=== PATIENT | male | born 1970 | race Hispanic/Latino ===

== ENCOUNTER 2018-05-31 06:58 | Emergency (ER) | payer MEDICARE ==
--- NOTE | 2018-05-31 12:56 | Emergency Department Report ---
ED CPR HPI - General Chief Complaint: Cardiac Arrest/CPR Stated Complaint: CARDIAC ARREST Source: EMS Mode of arrival: Stretcher Limitations: Other - History of Present Illness Initial Comments: This is a status post cardiac arrest patient that presents to this facility in asystole. He has metastatic cancer to his brain. His hospice nurse was present when he had a witnessed cardiac arrest. Paramedics state that the family and hospice nurse did not have a fully executed DO NOT RESUSCITATE. Therefore he was transferred to this facility for further care CPR in progress. There was no response to CPR for more than 20 minutes prior to arrival. MD Complaint: stopped breathing -: minute(s) Place: home Bystander CPR Performed: No Initial Findings in the Field: lethargic ROSC in the Field: No Associated Injuries: No Treatments Prior to Arrival: BMV - Related Data Home Medications Medication Instructions Recorded Confirmed Last Taken ALPRAZolam [Xanax TAB] 2 mg PO TID PRN 09/23/14 02/28/18 Unknown Aspirin [Aspirin BABY CHEW TAB] 81 mg PO QDAY 09/23/14 02/28/18 Unknown Carvedilol [Coreg] 25 mg PO BID 09/23/14 02/28/18 Unknown Clopidogrel [Plavix] 75 mg PO QDAY 09/23/14 02/28/18 Unknown Furosemide [Lasix] 40 mg PO BID 09/23/14 02/28/18 Unknown Hydralazine HCl [Apresoline TAB] 50 mg PO TID 09/23/14 02/28/18 Unknown Isosorbide Mononitrate [Isosorbide 60 mg PO QDAY 09/23/14 02/28/18 Unknown Mononitrate ER (IMDUR)] Lisinopril [Zestril TAB] 40 mg PO QDAY 09/23/14 02/28/18 Unknown Morphine [Morphine TAB] 15 mg PO BID PRN 09/23/14 02/28/18 Unknown NIFEdipine [NIFEdipine ER] 60 mg PO DAILY 09/23/14 02/28/18 Unknown Quetiapine Fumarate [SEROquel XR] 400 mg PO QHS 09/23/14 02/28/18 Unknown cloNIDine-TTS PATCH [Catapres-Tts 1 patch TD 1XW 09/23/14 02/28/18 Unknown Patch] lamoTRIgine [LaMICtal] 200 mg PO QDAY 09/23/14 02/28/18 Unknown metFORMIN [Glucophage] 500 mg PO BID 09/23/14 02/28/18 Unknown oxyCODONE [Roxicodone TAB] 15 mg PO QID PRN 09/23/14 02/28/18 Unknown ALBUTEROL Inhaler [Proair] 2 puff IH QID PRN 02/28/18 02/28/18 Unknown Budesonide [Pulmicort] 0.25 mg IH Q12HR 02/28/18 02/28/18 Unknown Docusate Sodium [Colace] 100 mg PO BID PRN 02/28/18 02/28/18 Unknown Duloxetine HCl [Cymbalta] 2 tab PO DAILY 02/28/18 02/28/18 Unknown Fluticasone/Salmeterol [Advair 1 each IH BID 02/28/18 02/28/18 Unknown 250-50 Diskus] Fluticasone/Vilanterol [Breo 1 each IH DAILY 02/28/18 02/28/18 Unknown Ellipta 100-25 Mcg INH] Levothyroxine [Synthroid] 50 mcg PO QAM 02/28/18 02/28/18 Unknown Ranitidine HCl [Zantac 150 MG TAB] 150 mg PO BID 02/28/18 02/28/18 Unknown cycloSPORINE [Restasis 0.05%] 1 drop OP BID 02/28/18 02/28/18 Unknown predniSONE [Deltasone] 10 mg PO QDAY 02/28/18 02/28/18 Unknown Allergies Allergy/AdvReac Type Severity Reaction Status Date / Time Penicillins Allergy Hives Verified 09/23/14 18:49 sulfamethoxazole Allergy Hives Verified 09/23/14 18:49 [From Bactrim] trimethoprim [From Bactrim] Allergy Hives Verified 09/23/14 18:49 ED Review of Systems ROS: Stated complaint: CARDIAC ARREST Other details as noted in HPI Comment: Unobtainable due to pts medical conditions ED Past Medical Hx - Past Medical History Hx Hypertension: Yes Hx Congestive Heart Failure: Yes Hx Diabetes: Yes Hx COPD: Yes Additional medical history: Metastatic carcinoma to brain - Surgical History Hx Coronary Stent: Yes Additional Surgical History: stents x 2009 - Social History Smoking Status: Current Every Day Smoker Other Social History: Home hospice patient - Medications Home Medications: Home Medications Medication Instructions Recorded Confirmed Last Taken Type ALPRAZolam [Xanax TAB] 2 mg PO TID PRN 09/23/14 02/28/18 Unknown History Aspirin [Aspirin BABY CHEW TAB] 81 mg PO QDAY 09/23/14 02/28/18 Unknown History Carvedilol [Coreg] 25 mg PO BID 09/23/14 02/28/18 Unknown History Clopidogrel [Plavix] 75 mg PO QDAY 09/23/14 02/28/18 Unknown History Furosemide [Lasix] 40 mg PO BID 09/23/14 02/28/18 Unknown History Hydralazine HCl [Apresoline TAB] 50 mg PO TID 09/23/14 02/28/18 Unknown History Isosorbide Mononitrate [Isosorbide 60 mg PO QDAY 09/23/14 02/28/18 Unknown History Mononitrate ER (IMDUR)] Lisinopril [Zestril TAB] 40 mg PO QDAY 09/23/14 02/28/18 Unknown History Morphine [Morphine TAB] 15 mg PO BID PRN 09/23/14 02/28/18 Unknown History NIFEdipine [NIFEdipine ER] 60 mg PO DAILY 09/23/14 02/28/18 Unknown History Quetiapine Fumarate [SEROquel XR] 400 mg PO QHS 09/23/14 02/28/18 Unknown History cloNIDine-TTS PATCH [Catapres-Tts 1 patch TD 1XW 09/23/14 02/28/18 Unknown History Patch] lamoTRIgine [LaMICtal] 200 mg PO QDAY 09/23/14 02/28/18 Unknown History metFORMIN [Glucophage] 500 mg PO BID 09/23/14 02/28/18 Unknown History oxyCODONE [Roxicodone TAB] 15 mg PO QID PRN 09/23/14 02/28/18 Unknown History ALBUTEROL Inhaler [Proair] 2 puff IH QID PRN 02/28/18 02/28/18 Unknown History Budesonide [Pulmicort] 0.25 mg IH Q12HR 02/28/18 02/28/18 Unknown History Docusate Sodium [Colace] 100 mg PO BID PRN 02/28/18 02/28/18 Unknown History Duloxetine HCl [Cymbalta] 2 tab PO DAILY 02/28/18 02/28/18 Unknown History Fluticasone/Salmeterol [Advair 1 each IH BID 02/28/18 02/28/18 Unknown History 250-50 Diskus] Fluticasone/Vilanterol [Breo 1 each IH DAILY 02/28/18 02/28/18 Unknown History Ellipta 100-25 Mcg INH] Levothyroxine [Synthroid] 50 mcg PO QAM 02/28/18 02/28/18 Unknown History Ranitidine HCl [Zantac 150 MG TAB] 150 mg PO BID 02/28/18 02/28/18 Unknown History cycloSPORINE [Restasis 0.05%] 1 drop OP BID 02/28/18 02/28/18 Unknown History predniSONE [Deltasone] 10 mg PO QDAY 02/28/18 02/28/18 Unknown History ED Physical Exam - General Limitations: Other General appearance: alert, in no apparent distress - Head Head exam: Present: atraumatic, normocephalic - Eye Eye exam: Present: normal appearance. Absent: scleral icterus Pupils: Present: other (fixed and dilated) - ENT ENT exam: Present: mucous membranes dry - Neck Neck exam: Present: normal inspection - Respiratory Respiratory exam: Present: normal lung sounds bilaterally (with assist). Absent : respiratory distress - Cardiovascular Cardiovascular Exam: Present: other (asystole). Absent: regular rate, normal rhythm - GI/Abdominal GI/Abdominal exam: Present: soft, distended - Rectal Rectal exam: Present: deferred - Extremities Exam Extremities exam: Present: normal inspection - Skin Skin exam: Present: warm, pallor ED Course - Reevaluation(s) Reevaluation #1: The patient's arrived with the patient's CPR progress. She stated immediately that she did not want any further resuscitation. CPR was discontinued. The patient is already received unsuccessful CPR I believe for more than 20 minutes anyway. He arrived in asystole. Further efforts were futile anyway. 05/31/18 13:49 Critical care attestation.: If time is entered above; I have spent that time in minutes in the direct care of this critically ill patient, excluding procedure time. 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
== END 2018-05-31 08:52 ==
LOC: ED 06:58
DX: I46.9 Cardiac arrest, cause unspecified (principal); C79.31 Secondary malignant neoplasm of brain; I10 Essential (primary) hypertension; I50.9 Heart failure, unspecified; E11.9 Type 2 diabetes mellitus without complications; J44.9 Chronic obstructive pulmonary disease, unspecified; F17.200 Nicotine dependence, unspecified, uncomplicated; Z88.0 Allergy status to penicillin; Z88.2 Allergy status to sulfonamides; Z79.82 Long term (current) use of aspirin; Z88.8 Allergy status to other drugs, medicaments and biological substances
CPT/HCPCS: 92950